=== PATIENT | male | born 1975 | race Caucasian/White ===

== ENCOUNTER 2016-09-14 16:18 | Emergency (ER) | payer OTHER ==
[2016-09-14 16:25] VITALS: BP 126/66; PULSE 80; RESP 16; TEMP 99.3; O2SAT 97
--- NOTE | 2016-09-14 17:28 | UCPHY ---
H & P Patient Type: New Chief Complaint Nursing Narrative: cough, sinus pain, ferrera, fever started yesterday Time Seen by Provider: 09/14/16 17:20 HPI/ROS: Chief Complaint: Cough, headache, sore throat HPI: 41-year-old male presenting with 1 day of cough, sore throat, mild headache. States his son is currently being treated for a it throat and upper respiratory infection. Patient has also been having a little bit of epigastric pain. This he notices at night but has had some today. Not taking medicine for this. No melena. No fevers or chills. Has dry nonproductive cough. No chest pain. No neck pain or stiffness. ROS: 10 point Review of Systems is negative except as noted in the HPI. PMH: None Medications: None Allergies: None Social History: No smoking, no alcohol, no recreational drug use Family History: non-contributory Physical Exam: Gen: Awake, Alert, No Distress HEENT: Ears are normal Nose: no rhinorrhea Eyes: PERRLA, EOMI Mouth: Moist mucosa normal oropharynx Neck: Supple, no JVD Chest: nontender, lungs clear to auscultation Heart: S1, S2 normal, no murmur Abd: Soft, mild epigastric tenderness, no guarding Back: no CVA tenderness, no midline tenderness Ext: no edema, non-tender Skin: no rash Neuro: CN II-XII intact, Sensation grossly intact, Strength 5/5 in bilateral upper and lower extremities - Medical/Surgical History Other PMH: denies - Family History Significant Family History: No pertinent family hx - Social History Smoking Status: Never smoked Constitutional: Initial Vital Signs Temperature (C) 37.4 C 09/14/16 16:23 Heart Rate 80 09/14/16 16:23 Respiratory Rate 16 09/14/16 16:23 Blood Pressure 126/66 H 09/14/16 16:23 O2 Sat (%) 97 09/14/16 16:23 O2 Delivery Mode Room Air Allergies/Adverse Reactions: No Known Allergies Allergy (Unverified 09/14/16 16:23) Home Medications: Medication Instructions Recorded NK [No Known Home Meds] 09/14/16 Departure - Departure Disposition: Home, Routine, Self-Care Clinical Impression: Viral upper respiratory infection, GERD (gastroesophageal reflux disease) Condition: Good Instructions: Gastroesophageal Reflux Disease (ED), Viral Syndrome (ED) Additional Instructions: You may take Pepcid [id number] for your heartburn. You may take acetaminophen as needed for fevers, chills, aches, or pains. Follow up with primary care physician about a week if symptoms are not improving. Referrals: [facility] [Outside] - As per Instructions - PQRS PQRS Measurement: NA
== END 2016-09-14 17:46 | disposition home or self-care (01) ==
LOC: MERGE 16:18 → CED 16:18
DX: J06.9 Acute upper respiratory infection, unspecified (principal); K21.9 Gastro-esophageal reflux disease without esophagitis
CPT/HCPCS: 99204-PO; G0463-PO

== ENCOUNTER 2016-11-05 11:20 | Emergency (ER) | payer OTHER ==
[2016-11-05] MEDS ORDERED: DEXAMETHASONE 10 MG/ML VIAL PO ONE (11:34)
[2016-11-05] MEDS ORDERED: AMOXICILLIN/CLAVULANATE POT 875/125 MG TAB PO ONE (11:34)
[2016-11-05] MEDS ORDERED: BENZOCAINE 57 G CAN HURRICAINE MM ONE (11:35)
[2016-11-05] MEDS ORDERED: ACETAMINOPHEN 500 MG TAB PO ONE (11:35)
[2016-11-05] MEDS ORDERED: IBUPROFEN 800 MG TAB PO ONE (11:35)
[2016-11-05] MEDS ORDERED: BENZOCAINE UNIT DOSE SPRAY HURRICAINE MM ONE ×2 (11:36→11:46)
[2016-11-05 11:41] VITALS: O2SAT 96
[2016-11-05] MEDS ORDERED: IBUPROFEN 200 MG TAB PO ONE (11:46)
--- NOTE | 2016-11-05 12:15 | EDPHY ---
H & P Stated Complaint: rt tonsil swollen,difficult to swallow and fever x3 days,rt ear pain Time Seen by Provider: 11/05/16 11:31 HPI/ROS: CHIEF COMPLAINT: Sore throat HISTORY OF PRESENT ILLNESS: Patient is a 41-year-old man who comes to the emergency department complaining a sore throat and right tonsillar swelling. He is able to swallow. He is handling his secretions. He is a fever and slightly tachycardic. No difficulty breathing. No headache. REVIEW OF SYSTEMS: Constitutional: See HPI EENTM: denies: blurred vision, double vision, nose congestion Respiratory: denies: cough, shortness of breath Cardiac: denies: chest pain, irregular heart rate, lightheadedness, palpitations Gastrointestinal/Abdominal: denies: abdominal pain, diarrhea, nausea, vomiting, blood streaked stools Genitourinary: denies: dysuria, frequency, hematuria, pain Musculoskeletal: denies: joint pain, muscle pain Skin: denies: lesions, rash, jaundice, bruising Neurological: denies: headache, numbness, paresthesia, tingling, dizziness, weakness Hematologic/Lymphatic: denies: blood clots, easy bleeding, easy bruising Immunologic/allergic: denies: HIV/AIDS, transplant EXAM: GENERAL: Well-appearing, well-nourished and in no acute distress. HEAD: Atraumatic, normocephalic. EYES: Pupils equal round and reactive to light, extraocular movements intact, sclera anicteric, conjunctiva are normal. ENT: Patient has a swollen erythematous right tonsil with minimal deviation of the uvula. No exudate . TMs normal, nares patent. Moist mucous membranes. NECK: Normal range of motion, supple without lymphadenopathy or JVD. LUNGS: Breath sounds clear to auscultation bilaterally and equal. No wheezes rales or rhonchi. HEART: Regular rate and rhythm without murmurs, rubs or gallops. ABDOMEN: Soft, nontender, normoactive bowel sounds. No guarding, no rebound. No masses appreciated. BACK: No CVA tenderness, no spinal tenderness, step-offs or deformities EXTREMITIES: Normal range of motion, no pitting or edema. No clubbing or cyanosis. NEUROLOGICAL: Cranial nerves II through XII grossly intact. Normal speech, normal gait. 5/5 strength, normal movement in all extremities, normal sensation PSYCH: Normal mood, normal affect. SKIN: Warm, dry, normal turgor, no visible rashes or lesions. Source: Patient Exam Limitations: No limitations - Medical/Surgical History Hx Asthma: No Hx Chronic Respiratory Disease: No Hx Diabetes: No Hx Cardiac Disease: No Hx Renal Disease: No Hx Cirrhosis: No Hx Alcoholism: No Hx HIV/AIDS: No Hx Splenectomy or Spleen Trauma: No Other PMH: Med-none. Surg-rt foot - Family History Significant Family History: No pertinent family hx - Social History Smoking Status: Never smoked Alcohol Use: Sober Drug Use: None Constitutional: Initial Vital Signs Temperature (C) 38.8 C H 11/05/16 11:25 Heart Rate 120 H 11/05/16 11:25 Respiratory Rate 20 11/05/16 11:25 Blood Pressure 128/71 H 11/05/16 11:25 O2 Sat (%) 96 11/05/16 11:25 O2 Delivery Mode Room Air Allergies/Adverse Reactions: No Known Allergies Allergy (Verified 11/05/16 11:38) Home Medications: Medication Instructions Recorded Amoxicillin/Clavulanate Pot 875 mg PO BID #14 tab 11/05/16 [Augmentin 875Mg] Hydrocodone/APAP 5/325 [[place] 1 - 2 tab PO Q4H PRN #7 tab 11/05/16 5/325 (RX)] Medical Decision Making Procedures: The patient's right posterior pharynx was numbed with 2 sprays of Hurricaine spray. The area was then anesthetized with 3 cc of 1% lidocaine with epinephrine. I then made 5 attempts at aspiration with an 18 gauge needle. No purulent drainage found. Patient tolerated the procedure well. Minimal amount of bleeding. ED Course/Re-evaluation: Patient has a peritonsillar abscess clinically. I will start him on steroids and Augmentin. Several attempts were made at drainage with a 18 gauge needle but unsuccessfully. Patient tolerated the procedure well. I will have him follow up with ENT on Monday and have instructed him to return the ER if his symptoms worsen before then. 1:00 p.m. the patient is feeling much better. His heart rate is improved and his fever has improved although it is not yet afebrile. His family is here and is eager to leave. He is handling secretions. He is eating without difficulty. He is breathing without difficulty. He understands the instructions. Strict warnings were given for returning precautions. Differential Diagnosis: Partial list of the Differential diagnosis considered include but were not limited to; peritonsillar abscess, strep pharyngitis, mononucleosis and although unlikely based on the history and physical exam, I also considered sepsis, epiglottitis, retropharyngeal abscess. I discussed these differential diagnoses and the plan with the patient as well as the usual and expected course. The patient understands that the diagnosis is provisional and that in medicine we are not always correct and that further workup is often warranted. Usual and customary warnings were given. All of the patient's questions were answered. The patient was instructed to return to the emergency department should the symptoms at all worsen or return, otherwise to followup with the physician as we discussed. - Data Points Medications Given: Discontinued Medications Acetaminophen (Tylenol) 1,000 mg PO EDNOW ONE Stop: 11/05/16 11:36 Last Admin: 11/05/16 11:50 Dose: 1,000 mg Amoxicillin/Clavulanate Potassium (Augmentin 875mg) 875 mg PO EDNOW ONE PRN Reason: Protocol Stop: 11/05/16 11:35 Last Admin: 11/05/16 11:50 Dose: 875 mg Benzocaine (Hurricaine [place]) 3 each MM EDNOW ONE Stop: 11/05/16 11:37 Last Admin: 11/05/16 12:05 Dose: 3 each Dexamethasone (Decadron Injection) 10 mg PO EDNOW ONE Stop: 11/05/16 11:35 Last Admin: 11/05/16 11:50 Dose: 10 mg Ibuprofen (Motrin) 800 mg PO EDNOW ONE Stop: 11/05/16 11:36 Last Admin: 11/05/16 11:50 Dose: 800 mg Departure - Departure Disposition: Home, Routine, Self-Care Clinical Impression: Peritonsillar abscess Condition: Fair Instructions: Peritonsillar Abscess (ED) Additional Instructions: Follow-up with ENT on Monday without fail as we discussed. If your symptoms worsen or you cannot swallow fluids return to the emergency department. Referrals: Gwendolyn Gutierrez PA [Physician [employer]] - As per Instructions Prescriptions: Amoxicillin/Clavulanate Pot [Augmentin 875Mg] 875 mg PO BID #14 tab Hydrocodone/APAP 5/325 [[place] 5/325 (RX)] 1 - 2 tab PO Q4H PRN #7 tab PRN Reason: Pain, Moderate
[2016-11-05 13:16] VITALS: BP 114/72; PULSE 112; RESP 18; TEMP 100.6
== END 2016-11-05 13:09 | disposition home or self-care (01) ==
LOC: CED 11:20
PROC: 0C9P3ZZ Drainage of Tonsils, Percutaneous Approach (ICD-10-PCS; principal; 2016-11-05)
DX: J36 Peritonsillar abscess (principal)

== ENCOUNTER 2016-11-08 22:18 | Emergency (ER) | payer OTHER ==
[2016-11-08] MEDS ORDERED: NS 1,000 ML IV ONE (22:42)
[2016-11-08] MEDS ORDERED: DEXAMETHASONE 10 MG/ML VIAL IVP ONE (22:42)
[2016-11-08 22:44] VITALS: RESP 16; O2SAT 95
[2016-11-08 23:08] LABS: ABSOLUTE IMMATURE GRANULOCYTES 0.16 10^3/uL (0.00-0.10); ADD DIFF? NO; ADD MORPH? NO; ADD SCAN? YES; FRAGMENT RBC FLAG 0 (0-99); HEMATOCRIT 42.8 % (40.0-51.0); HEMOGLOBIN 15.5 g/dL (13.7-17.5); LEFT SHIFT FLG 0 (0-99); LIPEMIA HEMOLYSIS FLAG 90 (0-99); MEAN CELL HEMOGLOBIN 30.3 pg (27.9-34.1); MEAN CELL HEMOGLOBIN CONCENTR. 36.2 g/dL (32.4-36.7); MEAN CELL VOLUME 83.6 fL (81.5-99.8); MEAN PLATELET VOLUME 9.7 fL (8.7-11.7); PLATELET CLUMPS FLAG 0 (0-99); PLATELET COUNT 372 10^3/uL (150-400); RED BLOOD CELL COUNT 5.12 10^6/uL (4.40-6.38); RED CELL DISTRIBUTION WIDTH 13.1 % (11.5-15.2)
[2016-11-08 23:09] LABS: ATYPICAL LYMPHOCYTE FLAG 100 (0-99)
[2016-11-08] MEDS ORDERED: KETOROLAC 30 MG/1 ML SDV IVP ONE (23:11)
[2016-11-08 23:15] LABS: ANION GAP 19 mEq/L (8-16); CALCIUM 9.2 mg/dL (8.5-10.4); CARBON DIOXIDE 22 mEq/l (22-31); CHLORIDE 98 mEq/L (97-110); CREATININE 0.6 mg/dL (0.7-1.3); GLOMERULAR FILTRATION RATE > 60; GLUCOSE 209 mg/dL (70-100); POTASSIUM 3.9 mEq/L (3.5-5.2); SODIUM 139 mEq/L (134-144)
[2016-11-08 23:17] LABS: SCAN NEGATIVE
[2016-11-08 23:54] VITALS: BP 137/71; PULSE 92; TEMP 98.2
--- NOTE | 2016-11-08 23:56 | EDPHY ---
H & P Time Seen by Provider: 11/08/16 22:35 HPI/ROS: 41-year-old male presents complaining of worsening sore throat. He was seen here on November 05 with likely peritonsillar abscess with attempted drainage, was to follow up with ENT on Monday but was unable to get there because of work , he has been taking Augmentin and states his throat is just not getting better. He has painful swallowing however he is able to tolerate his own saliva. Review of systems As per HPI General positive fever no chills no weakness HEENT no eye pain no eye discharge. No eye redness, positive sore throat Respiratory no cough, no shortness of breath Cardiac no chest pain, no peripheral edema GI no abdominal pain, no diarrhea, no constipation, no nausea, no vomiting no flank pain, no hematuria, no dysuria Musculoskeletal no myalgias, no joint pain Heme no easy bruising, no easy bleeding Endo no polyuria, no polydipsia Skin no rashes, no pruritus Neuro no syncope, no dizziness, no headaches Psych is no suicidal ideation, no homicidal ideation Past Medical/Surgical History: Noncontributory Social History: Denies alcohol or drug use Works full-time Smoking Status: Never smoked Physical Exam: 41-year-old male alert and oriented, vital signs stable Atraumatic normocephalic Extraocular muscles intact, anicteric Oropharynx large peritonsillar swelling on right with slight uvular deviation, no pooling of secretions, tolerating his secretions, no trismus Neck supple positive anterior cervical lymphadenopathy, , no stridor Lungs clear to auscultation bilaterally Heart regular rate and rhythm without murmur rub or gallop Abdomen normoactive bowel sounds soft nontender Extremities no cyanosis clubbing or edema Skin no rash Constitutional: Initial Vital Signs Temperature (C) 37.9 C 11/08/16 22:30 Heart Rate 104 H 11/08/16 22:30 Respiratory Rate 16 11/08/16 22:30 Blood Pressure 138/88 H 11/08/16 22:30 O2 Sat (%) 95 11/08/16 22:30 O2 Delivery Mode Room Air Allergies/Adverse Reactions: No Known Allergies Allergy (Verified 11/08/16 22:37) Home Medications: Medication Instructions Recorded Amoxicillin/Clavulanate Pot 875 mg PO BID #14 tab 11/05/16 [Augmentin 875Mg] Hydrocodone/APAP 5/325 [[place] 1 - 2 tab PO Q4H PRN #7 tab 11/05/16 5/325 (RX)] Medical Decision Making ED Course/Re-evaluation: Patient seen and evaluated for worsening sore throat, seen here earlier in the week for likely peritonsillar abscess. Has been taking Augmentin. Differential diagnosis Acute pharyngitis, peritonsillar abscess, peritonsillar hematoma Impression . Right peritonsillar swelling-likely abscess cannot rule out some component of hematoma Patient was given IV fluids normal saline, Decadron 10 mg IV push, Toradol 30 mg IV push with marked relief of symptoms. Plain film soft tissue neck negative for epiglottitis, large airway patent Plan Follow-up with ENT in the morning, call ENT at 7:30 a.m. I discussed this case with Dr. Agustin Urbina - Data Points Laboratory Results: Laboratory Results 11/08/16 23:00 11/08/16 23:00 11/08/16 11/08/16 23:00 23:00 WBC 16.18 10^3/uL H 10^3/uL (3.80-9.50) RBC 5.12 10^6/uL 10^6/uL (4.40-6.38) Hgb 15.5 g/dL g/dL (13.7-17.5) Hct 42.8 % % (40.0-51.0) MCV 83.6 fL fL (81.5-99.8) MCH 30.3 pg pg (27.9-34.1) MCHC 36.2 g/dL g/dL (32.4-36.7) RDW 13.1 % % (11.5-15.2) Plt Count 372 10^3/uL 10^3/uL (150-400) MPV 9.7 fL fL (8.7-11.7) Neut % (Auto) 60.9 % % (39.3-74.2) Lymph % (Auto) 29.1 % % (15.0-45.0) [place] % (Auto) 8.3 % % (4.5-13.0) Eos % (Auto) 0.3 % L % (0.6-7.6) Baso % (Auto) 0.4 % % (0.3-1.7) Nucleat RBC Rel Count 0.0 % % (0.0-0.2) Absolute Neuts (auto) 9.84 10^3/uL H 10^3/uL (1.70-6.50) Absolute Lymphs (auto) 4.71 10^3/uL H 10^3/uL (1.00-3.00) Absolute Monos (auto) 1.35 10^3/uL H 10^3/uL (0.30-0.80) Absolute Eos (auto) 0.05 10^3/uL 10^3/uL (0.03-0.40) Absolute Basos (auto) 0.07 10^3/uL 10^3/uL (0.02-0.10) Absolute Nucleated RBC 0.00 10^3/uL 10^3/uL (0-0.01) Immature Gran % 1.0 % % (0.0-1.1) Immature Gran # 0.16 10^3/uL H 10^3/uL (0.00-0.10) Sodium 139 mEq/L mEq/L (134-144) Potassium 3.9 mEq/L mEq/L (3.5-5.2) Chloride 98 mEq/L mEq/L (97-110) Carbon Dioxide 22 mEq/l mEq/l (22-31) Anion Gap 19 mEq/L H mEq/L (8-16) BUN 12 mg/dL mg/dL (7-23) Creatinine 0.6 mg/dL L mg/dL (0.7-1.3) Estimated GFR > 60 Glucose 209 mg/dL H mg/dL (70-100) Calcium 9.2 mg/dL mg/dL (8.5-10.4) Medications Given: Discontinued Medications Dexamethasone (Decadron Injection) 10 mg IVP EDNOW ONE Stop: 11/08/16 22:43 Last Admin: 11/08/16 23:00 Dose: 10 mg Sodium Chloride (Ns) 1,000 mls @ 0 mls/hr IV ONCE ONE PRN Reason: Wide Open Stop: 11/08/16 22:43 Last Admin: 11/08/16 23:00 Dose: 1,000 mls Ketorolac Tromethamine (Toradol) 30 mg IVP EDNOW ONE Stop: 11/08/16 23:12 Last Admin: 11/08/16 23:20 Dose: 30 mg Departure - Departure Disposition: Home, Routine, Self-Care Clinical Impression: Peritonsillar abscess Condition: Good Additional Instructions: Call the Ear Nose Throat specialist at 7:30 a.m. to be seen 1st thing in the morning The phone number is [phone] He will be seen by Dr. Agustin Urbina Referrals: NONE *PRIMARY CARE P,. [Primary Care Provider] - As per Instructions Agustin Urbina PA [Physician [employer] [facility]] - As per Instructions
== END 2016-11-08 23:58 | disposition home or self-care (01) ==
LOC: CED 22:18
DX: J36 Peritonsillar abscess (principal)
CPT/HCPCS: 70360-PO; 80048-PO; 85025-PO; 96374; J1885